=== PATIENT | male | born 1955 | race Caucasian/White ===

== ENCOUNTER 2016-09-17 06:25 | Observation (INO) | payer BC ==
[~2016-09-17 06:25] MED LIST: AMIT25 PO; APRES10B PO; ASA5GR PO; ASAB PO; BAC PO; COREG3 PO; COREG6 PO; CRESTOR10 PO; DSS PO; FLORASTOR250 MG PO; GLUCPH PO; HUMALOGPEN SC; HUMAMIXPEN SC; ISORDIL20 PO; KLOR-CON M2020 MEQ PO; KURIC2 % TOP; L20 PO; L80 PO; LANTUS SC; LEVEMFLXPN SC; LORTAB 5 PO; MVI PO; NEUR300 PO; NORCO1 TA2 PO; NOVALOG INSULIN; NOVALOG SC; NOVOLOG SC; NOVOLOGMIX SC; NOVOPEN SC; NYSTATPOW TOP; PEP20 PO; PRAVACHOL40 MG PO; PRIN10 PO; PRIN5 PO; PROAIR HFA INH; SPIRO25 PO; SYN.05 PO; ULTRAM50 PO; Z300 PO; ZAROX2.5B PO; ZESTRIL2.5 MG PO; ZYVOXPO PO
[2016-09-17 07:22] LABS: BASOPHILS 1.7 %; BASOPHILS ABSOLUTE 0.11 10/3/uL (0.0-0.16); EOSINOPHILS 7.7 %; HEMATOCRIT 35.5 % (40.0-51.0); HEMOGLOBIN 11.1 g/dL (13.6-17.8); IMMATURE GRANULOCYTES 0.2 %; IMMATURE GRANULOCYTES ABSOLUTE 0.01 10/3/uL (0.0-0.11); LYMPHOCYTES 20.4 %; LYMPHOCYTES ABSOLUTE 1.32 10/3/uL (0.67-4.30); MANUAL DIFF NO %; MEAN CORPUS HGB CONC 31.3 g/dL (32.0-36.0); MEAN CORPUSCULAR HEMOGLOB 28.5 pg (26.0-34.0); MEAN PLATELET VOLUME 9.9 fL (9.2-13.0); MONOCYTES ABSOLUTE 0.52 10/3/uL (0.21-1.20); NEUTROPHILS ABSOLUTE 4.02 10/3/uL (2.02-8.40); PLATELET COUNT 175 10/3/uL (150-400); RBC DISTRIBUTION WIDTH 16.7 % (12.0-16.0); WHITE BLOOD CELLS 6.5 10/3/uL (4.5-10.5)
[2016-09-17 07:35] LABS: BUN (BLOOD UREA NITROGEN) 37 MG/DL (6-23); CALCIUM, SERUM 9.2 MG/DL (8.5-10.4); CHLORIDE, SERUM 98 MMOL/L (96-112); CHOL/HDL RATIO(NOT ORDER) 2.9 (0-5); CHOLESTEROL 91 MG/DL (< 200); CO2 (CARBON DIOXIDE) 32 MMOL/L (24-34); CREATININE 1.51 MG/DL (0.70-1.30); GFR AFRICAN AMERICAN 58 ML/MIN (>=60); GFR NON AFRICAN AMERICAN 50 ML/MIN (>=60); GLUCOSE, SERUM 144 MG/DL (60-99); HDL CHOLESTEROL 31 MG/DL (> 39); LDL CHOLESTEROL 41 MG/DL (< 130); NON-HDL CHOLESTEROL 60 MG/DL (< 160); POTASSIUM, SERUM 3.7 MMOL/L (3.5-5.3); SODIUM, SERUM 135 MMOL/L (135-148); TRIGLYCERIDE 99 MG/DL (< 150)
[2016-09-18 04:49] LABS: BASOPHILS 1.3 %; BASOPHILS ABSOLUTE 0.09 10/3/uL (0.0-0.16); EOSINOPHILS 6.3 %; EOSINOPHILS ABSOLUTE 0.43 10/3/uL (0.0-0.53); HEMOGLOBIN 11.7 g/dL (13.6-17.8); IMMATURE GRANULOCYTES 0.1 %; IMMATURE GRANULOCYTES ABSOLUTE 0.01 10/3/uL (0.0-0.11); LYMPHOCYTES 17.1 %; LYMPHOCYTES ABSOLUTE 1.17 10/3/uL (0.67-4.30); MEAN CORPUS HGB CONC 31.6 g/dL (32.0-36.0); MEAN CORPUSCULAR HEMOGLOB 28.9 pg (26.0-34.0); MEAN CORPUSCULAR VOLUME 91.4 fL (80-100); MEAN PLATELET VOLUME 10.8 fL (9.2-13.0); MONOCYTES 10.4 %; MONOCYTES ABSOLUTE 0.71 10/3/uL (0.21-1.20); NEUTROPHILS 64.8 %; NEUTROPHILS ABSOLUTE 4.44 10/3/uL (2.02-8.40); PLATELET COUNT 175 10/3/uL (150-400); RBC DISTRIBUTION WIDTH 16.7 % (12.0-16.0); RED CELL COUNT 4.05 10/6/uL (4.7-6.1); WHITE BLOOD CELLS 6.9 10/3/uL (4.5-10.5)
[2016-09-18 04:53] LABS: MANUAL DIFF NO %
[2016-09-18 05:04] LABS: BUN (BLOOD UREA NITROGEN) 36 MG/DL (6-23); CALCIUM, SERUM 9.7 MG/DL (8.5-10.4); CHLORIDE, SERUM 99 MMOL/L (96-112); CO2 (CARBON DIOXIDE) 28 MMOL/L (24-34); CREATININE 1.48 MG/DL (0.70-1.30); GFR AFRICAN AMERICAN 59 ML/MIN (>=60); GFR NON AFRICAN AMERICAN 51 ML/MIN (>=60); GLUCOSE, SERUM 144 MG/DL (60-99); POTASSIUM, SERUM 4.3 MMOL/L (3.5-5.3); SODIUM, SERUM 138 MMOL/L (135-148)
[2016-09-18] MEDS ORDERED: APRES25 PO (09:43)
[2016-09-18] MEDS ORDERED: CRESTOR20 MG PO (09:43)
[2016-09-18] MEDS ORDERED: DEMA20 PO (09:43)
[2016-12-05] MEDS ORDERED: NOVOLOGMIX (19:09)
[2016-12-13] MEDS ORDERED: FLOMAX4 PO (12:18)
[2016-12-13] MEDS ORDERED: DORYX100 MG PO (12:20)
== END 2016-09-18 09:46 | disposition home or self-care (01) ==
LOC: CORLMH 06:25 → SSU1 06:34
PROVIDERS: Internal Medicine Cardiovascular Disease
DX: I25.110 Atherosclerotic heart disease of native coronary artery with unstable angina pectoris (principal); I25.5 Ischemic cardiomyopathy; I13.0 Hypertensive heart and chronic kidney disease with heart failure and stage 1 through stage 4 chronic kidney disease, or unspecified chronic kidney disease; I50.22 Chronic systolic (congestive) heart failure; E11.22 Type 2 diabetes mellitus with diabetic chronic kidney disease; N18.3 Chronic kidney disease, stage 3 (moderate); E78.2 Mixed hyperlipidemia; Z87.891 Personal history of nicotine dependence; Z79.4 Long term (current) use of insulin; Z79.82 Long term (current) use of aspirin; Z79.899 Other long term (current) drug therapy; Z95.1 Presence of aortocoronary bypass graft
CPT/HCPCS: 80048; 80061; 82962; 83735; 84100; 85025; 93005; 93459; 96374; 99152; 99153; A9270-GY; C1769; C1887; C1894; G0378; J2250; J3010; Q9967